=== PATIENT | female | born 1985 | race Caucasian/White ===

== ENCOUNTER 2021-04-08 20:32 | Emergency (ER) | payer OTHER ==
[2021-04-08 20:48] VITALS: BP 116/76; PULSE 80; TEMP 98.3; BMI 42.9
[2021-04-08] MEDS ORDERED: SODIUM CHLORIDE 0.9% 500 ML INFUS.BAG IV ONE (22:13)
[2021-04-08 22:23] LABS: BASO % 0.5 % (0-2.0); EOS % 1.6 % (0-4.5); HEMATOCRIT 37.4 % (32.4-45.2); HEMOGLOBIN 12.5 GM/dL (10.7-15.3); MCH 30.1 pg (25.7-33.7); MCHC 33.4 g/dl (32.0-36.0); MEAN CELL VOLUME 90.1 fl (80-96); MEAN PLT VOLUME 8.5 fl (7.5-11.1); MONO % 8.2 % (3.8-10.2); NEUT % 66.7 % (42.8-82.8); PLATELET COUNT 230 10^3/uL (134-434); RBC 4.15 M/mm3 (3.60-5.2); RDW 13.2 % (11.6-15.6); WHITE BLOOD COUNT 10.6 K/mm3 (4.0-10.0)
[2021-04-08 22:50] LABS: CHLORIDE 107 mmol/L (98-107); SODIUM 134 mmol/L (136-145)
[2021-04-08 22:53] LABS: ALBUMIN 3.2 g/dl (3.4-5.0); BLOOD UREA NITROGEN 15.8 mg/dL (7-18); CO2 22 mmol/L (21-32)
[2021-04-08 22:54] LABS: GLUCOSE,RANDOM 141 mg/dL (74-106)
[2021-04-08 22:57] LABS: CREATININE 0.8 mg/dL (0.55-1.3); SGOT/AST 90 U/L (15-37)
[2021-04-08 22:58] LABS: BILIRUBIN,TOTAL 0.3 mg/dL (0.2-1); TOT PROT 7.3 g/dl (6.4-8.2)
[2021-04-08 22:59] LABS: ALK PHOS 71 U/L (45-117)
[2021-04-08 23:02] LABS: ANION GAP 5 MMOL/L (8-16); SGPT/ALT 25 U/L (13-61)
[2021-04-09 00:03] LABS: EPI CELLS 8 /uL (0-25.1); HYALINE CASTS 1 /uL (0-3.1); URINE APPEARANCE CLOUDY; URINE BACTERIA 3 /uL (0-1359); URINE BILIRUBIN NEGATIVE (NEGATIVE); URINE COLOR YELLOW; URINE GLUCOSE (UA) NEGATIVE (NEGATIVE); URINE KETONE NEGATIVE (NEGATIVE); URINE LEUK ESTERASE NEGATIVE (NEGATIVE); URINE NITRITE NEGATIVE (NEGATIVE); URINE PROTEIN NEGATIVE (NEGATIVE); URINE RBC 1899 /uL (0-23.9); URINE WBC 4 /uL (0-25.8)
== END 2021-04-09 02:22 | disposition home or self-care (01) ==
LOC: JER 20:32
DX: N93.9 Abnormal uterine and vaginal bleeding, unspecified (principal)
CPT/HCPCS: 36415; 76830-TC; 80053; 81003; 84132; 84702; 85025; 87086; 99284-25

== ENCOUNTER 2022-05-19 22:52 | Emergency (ER) | payer OTHER ==
[2022-05-19 22:56] VITALS: BP 125/63; PULSE 87; RESP 19; TEMP 98; BMI 42.9
[2022-05-20] MEDS ORDERED: LIDOCAINE 5% TOPICAL PATCH TP ONE ×2 (01:16→01:49)
[2022-05-20] MEDS ORDERED: METHOCARBAMOL 500 MG TABLET PO ONE (01:16)
[2022-05-20] MEDS ORDERED: LIDOCAINE 5% TOPICAL PATCH ONE ×2 (01:36→01:55)
[2022-05-20] MEDS ORDERED: METHOCARBAMOL 500 MG TABLET ONE (01:36)
[2022-05-20] MEDS ORDERED: LIDOCAINE PATCH REMOVAL MC SCH ×2 (22:00)
== END 2022-05-20 01:57 | disposition home or self-care (01) ==
LOC: JER 22:52
DX: M25.551 Pain in right hip (principal)
CPT/HCPCS: 99283-25